=== PATIENT | male | born 1945 | race Caucasian/White ===

== ENCOUNTER 2017-08-08 14:09 | Emergency (ER) | payer MEDICARE, OTHER ==
--- NOTE | 2017-08-08 14:51 | EDM.PDOC ---
ED HPI GENERAL MEDICAL PROBLEM - General Chief Complaint: Respiratory Problem Stated Complaint: BREATHING PROBLEMS Time Seen by Provider: 08/08/17 14:45 Source of Information: Reports: Patient History Limitations: Reports: No Limitations - History of Present Illness INITIAL COMMENTS - FREE TEXT/NARRATIVE: pt has felt sob and has been coughing alot for the past 3 days. he is rauising alot of white mucous. Onset: Gradual, Other (past several days. ) Duration: Day(s):, Getting Worse Location: Reports: Chest, Other (pt has no ankle swelling. ) Associated Symptoms: Reports: Cough, Other (pt has not had a fever. ) - Related Data Allergies Allergy/AdvReac Type Severity Reaction Status Date / Time gluten Allergy Hives Verified 08/08/17 14:26 Past Medical History Other Cardiovascular History: REPAIR OF A POF, AND SURGEON PERFORATED THE BACK OF THE HEART PER PT Respiratory History: Reports: COPD - Past Surgical History Other HEENT Surgeries/Procedures: [place] Other Musculoskeletal Surgeries/Procedures:: HX OF MULTIPLE SPONTANEOUS BONE BREAKS, BONE SCAN NEXT WEEK TO R/O BONE [place] Social & Family History - Tobacco Use Smoking Status *Q: Unknown Ever Smoked ED ROS GENERAL - Review of Systems Review Of Systems: See Below Constitutional: Reports: Weakness, Fatigue HEENT: Reports: No Symptoms Respiratory: Reports: Shortness of Breath, Wheezing Cardiovascular: Reports: No Symptoms Endocrine: Reports: No Symptoms GI/Abdominal: Reports: No Symptoms : Reports: No Symptoms Musculoskeletal: Reports: No Symptoms ED EXAM, GENERAL - Physical Exam Exam: See Below Free Text/Narrative:: pt arrived with a history of a very hard cough and raising alot of white mucous. He is coughing alot and this is wearing him out. Exam Limited By: No Limitations General Appearance: Alert, Anxious, Moderate Distress Ears: Normal TMs Nose: Normal Inspection Throat/Mouth: Normal Inspection Head: Atraumatic Neck: Normal Inspection Respiratory/Chest: Decreased Breath Sounds, Wheezing Cardiovascular: Regular Rate, Rhythm GI/Abdominal: Soft (Male) Exam: Deferred Rectal (Males) Exam: Deferred Back Exam: Normal Inspection Extremities: Normal Inspection, Other ( no swelling. ) Neurological: Alert, Oriented Course - Vital Signs Last Recorded V/S: Last Vital Signs Temp 36.1 C 08/08/17 14:23 Pulse 82 08/08/17 16:48 Resp 21 H 08/08/17 16:48 BP 136/82 08/08/17 16:48 Pulse Ox 93 L 08/08/17 16:48 - Orders/Labs/Meds Orders: Active Orders 24 hr Category Date Time Status RT Aerosol Therapy [RC] ASDIRECTED Care 08/08/17 15:10 Active RT Aerosol Therapy [RC] ASDIRECTED Care 08/08/17 16:29 Active Chest 2V [CR] Stat Exams 08/08/17 14:46 Taken Labs: Laboratory Tests 08/08/17 08/08/17 08/08/17 Range/Units 14:44 14:44 15:13 WBC 8.0 (4.5-11.0) K/uL RBC 4.37 (4.30-5.90) M/uL Hgb 14.0 (12.0-15.0) g/dL Hct 40.4 (40.0-54.0) % MCV 92 (80-98) fL MCH 32 H (27-31) pg MCHC 35 (32-36) % Plt Count 240 (150-400) K/uL Neut % (Auto) 50 (36-66) % Lymph % (Auto) 22 L (24-44) % [place] % (Auto) 19 H (2-6) % Eos % (Auto) 9 H (2-4) % Baso % (Auto) 1 (0-1) % Sodium 139 L (140-148) mmol/L Potassium 4.0 (3.6-5.2) mmol/L Chloride 101 (100-108) mmol/L Carbon Dioxide 29 (21-32) mmol/L Anion Gap 13.0 (5.0-14.0) mmol/L BUN 14 (7-18) mg/dL Creatinine 1.3 (0.8-1.3) mg/dL Est Cr Clr Drug Dosing 60.60 mL/min Estimated GFR (MDRD) 54 L (>60) Glucose 92 (74-106) mg/dL Calcium 8.9 (8.5-10.1) mg/dL Total Bilirubin 0.6 (0.2-1.0) mg/dL AST 53 H (15-37) U/L ALT 51 (12-78) U/L Alkaline Phosphatase 131 H (46-116) U/L C-Reactive Protein 0.86 H (0.0-0.3) mg/dL NT-Pro-B Natriuret Pep (5-125) pg/mL Total Protein 6.6 (6.4-8.2) g/dL Albumin 3.4 (3.4-5.0) g/dL Globulin 3.2 (2.3-3.5) g/dL Albumin/Globulin Ratio 1.1 L (1.2-2.2) 08/08/17 Range/Units 16:01 WBC (4.5-11.0) K/uL RBC (4.30-5.90) M/uL Hgb (12.0-15.0) g/dL Hct (40.0-54.0) % MCV (80-98) fL MCH (27-31) pg MCHC (32-36) % Plt Count (150-400) K/uL Neut % (Auto) (36-66) % Lymph % (Auto) (24-44) % [place] % (Auto) (2-6) % Eos % (Auto) (2-4) % Baso % (Auto) (0-1) % Sodium (140-148) mmol/L Potassium (3.6-5.2) mmol/L Chloride (100-108) mmol/L Carbon Dioxide (21-32) mmol/L Anion Gap (5.0-14.0) mmol/L BUN (7-18) mg/dL Creatinine (0.8-1.3) mg/dL Est Cr Clr Drug Dosing mL/min Estimated GFR (MDRD) (>60) Glucose (74-106) mg/dL Calcium (8.5-10.1) mg/dL Total Bilirubin (0.2-1.0) mg/dL AST (15-37) U/L ALT (12-78) U/L Alkaline Phosphatase (46-116) U/L C-Reactive Protein (0.0-0.3) mg/dL NT-Pro-B Natriuret Pep 192 H (5-125) pg/mL Total Protein (6.4-8.2) g/dL Albumin (3.4-5.0) g/dL Globulin (2.3-3.5) g/dL Albumin/Globulin Ratio (1.2-2.2) Meds: Medications Discontinued Medications Generic Name Dose Route Start Last Admin Trade Name Freq PRN Reason Stop Dose Admin Albuterol 2.5 mg 08/08/17 15:10 08/08/17 15:27 Proventil Neb Soln NEB 08/08/17 15:11 2.5 mg ONETIME ONE Administration Albuterol/Ipratropium 3 ml 08/08/17 16:29 08/08/17 16:40 Duoneb 3.0-0.5 Mg/3 Ml NEB 08/08/17 16:30 3 ml ONETIME ONE Administration Ceftriaxone Sodium 1 gm/ 0 gm 08/08/17 17:04 Lidocaine HCl 2.1 ml IM 08/08/17 17:05 ONETIME ONE Methylprednisolone Sodium Succinate 125 mg 08/08/17 15:42 08/08/17 15:50 Solu-Medrol IM 08/08/17 15:43 125 mg ONETIME ONE Administration - Re-Assessments/Exams Free Text/Narrative Re-Assessment/Exam: 08/08/17 15:50 PT IS PRESENTLY ON DOXYCLINE. AND HAS ONLY 2-3 DAYS LEFT. 08/08/17 15:52 hIS HS A NORMAL WBC WITH ALOT OF EOSINOPHILS. hE HAS BEEN ON STERIODS IN THE PAST. 08/08/17 17:04 The radiologist did read his chest xray. The density that was present in the rt lung may be related to the recent rib fractures or could be a new infiltrate. The radiologist looked at the film and agreed. The area is very close to the ribs. Departure - Departure Time of Disposition: 17:06 Disposition: Home, Self-Care 01 Condition: Fair Clinical Impression: Multiple fractures of ribs, Bronchospasm, COPD (chronic obstructive pulmonary disease) - Discharge Information Instructions: Shortness of Breath, [id number], Bronchospasm, Adult, Easy-to- Read Referrals: PCP,None [Primary Care Provider] - Forms: ED Department Discharge Care Plan Goals: cool mist humidifier, encourage fluids, robitussin ac, 2 tsp q6h, cont doxycyline, use albuterol nebs q 4h. Predisone 30mg for 2 days, 20mg for 2 days , 10mg daily for 5 days. follow up with regular Dr. - My Orders Last 24 Hours: My Active Orders 08/08/17 14:46 Chest 2V [CR] Stat 08/08/17 15:10 RT Aerosol Therapy [RC] ASDIRECTED 08/08/17 16:29 RT Aerosol Therapy [RC] ASDIRECTED - Assessment/Plan Last 24 Hours: My Active Orders 08/08/17 14:46 Chest 2V [CR] Stat 08/08/17 15:10 RT Aerosol Therapy [RC] ASDIRECTED 08/08/17 16:29 RT Aerosol Therapy [RC] ASDIRECTED
[2017-08-08] MEDS ORDERED: Albuterol 0.083% 2.5 MG/3 ML Neb Soln NEB ONE (15:10)
[2017-08-08] MEDS ORDERED: methylPREDNISolone Sodium Succinate 125 MG/2 ML SDV IM ONE (15:42)
[2017-08-08] MEDS ORDERED: Albuterol/Ipratropium 3.0-0.5 MG/3 ML Neb Soln NEB ONE (16:29)
[2017-08-08] MEDS ORDERED: cefTRIAXone 1 GM, Lidocaine 1% 2.1 ML IM ONE ×2 (17:04)
== END 2017-08-08 17:30 | disposition home or self-care (01) ==
LOC: JP.ED 14:09
DX: M84.48XA Pathological fracture, other site, initial encounter for fracture (principal); J98.01 Acute bronchospasm; J44.9 Chronic obstructive pulmonary disease, unspecified; Z91.09 Other allergy status, other than to drugs and biological substances
CPT/HCPCS: 36415; 71020; 80053; 83880; 85025; 86140; 94640; 96372; 96374; 99284; J0696; J2930; J7620

== ENCOUNTER 2018-09-05 10:44 | Emergency (ER) | payer MEDICARE, OTHER ==
--- NOTE | 2018-09-05 11:24 | EDM.PDOC ---
ED HPI GENERAL MEDICAL PROBLEM - General Stated Complaint: HIGH BP, LIGHT HEADED AND WEEK, CHEST PAINS Time Seen by Provider: 09/05/18 11:23 Source of Information: Reports: Patient History Limitations: Reports: No Limitations - History of Present Illness INITIAL COMMENTS - FREE TEXT/NARRATIVE: 73 years old male patient presented with a chief complaint of elevated blood pressure. Patient stated that he had a light headache and felt dizzy last night , feeling lightheaded and checked his blood pressure this morning and was 170/ 80. [facility]. He took his medicines this morning. Denies any chest pain or shortness breath. Denies any cough or fever. Denies any visual changes. Denies any focal weakness or numbness anywhere. Denies any abdominal pain diarrhea or constipation. Denies any urinary symptom. Patient stated that his symptoms completely resolved and he is currently back to normal. Also his blood pressure is down to the normal level with a [id number]. Stating that he is feeling much better and feeling back to normal. - Related Data Allergies Allergy/AdvReac Type Severity Reaction Status Date / Time gluten Allergy Hives Verified 09/05/18 10:58 Home Meds: Home Meds Tiotropium [Spiriva] 18 mcg INH DAILY 08/09/17 [History] Amitriptyline HCl 75 mg PO DAILY 09/05/18 [History] Budesonide/Formoterol Fumarate [Symbicort 160-4.5 Mcg Inhaler] 2 puff IH BID 07/14 [History] Lisinopril 10 mg PO DAILY 09/05/18 [History] Past Medical History HEENT History: Reports: Hard of Hearing, Impaired Vision Other Cardiovascular History: REPAIR OF A POF, AND SURGEON PERFORATED THE BACK OF THE HEART PER PT Respiratory History: Reports: COPD Gastrointestinal History: Reports: Other (See Below) Genitourinary History: Reports: Other (See Below) Musculoskeletal History: Reports: Other (See Below) Neurological History: Reports: TIA Hematologic History: Reports: B12 Deficiency, Blood Transfusion(s) Oncologic (Cancer) History: Reports: Prostate - Infectious Disease History Infectious Disease History: Reports: Chicken Pox, Measles, Mumps - Past Surgical History Head Surgeries/Procedures: Reports: None HEENT Surgical History: Reports: Eye Surgery Other HEENT Surgeries/Procedures: [facility] Cardiovascular Surgical History: Reports: None Respiratory Surgical History: Reports: None GI Surgical History: Reports: Appendectomy Male Surgical History: Reports: Prostatectomy Endocrine Surgical History: Reports: None Neurological Surgical History: Reports: None Other Musculoskeletal Surgeries/Procedures:: HX OF MULTIPLE SPONTANEOUS BONE BREAKS, BONE SCAN NEXT WEEK TO R/O BONE [place] Oncologic Surgical History: Reports: None Dermatological Surgical History: Reports: None Social & Family History - Tobacco Use Smoking Status *Q: Never Smoker - Caffeine Use Caffeine Use: Reports: Coffee - Recreational Drug Use Recreational Drug Use: No ED ROS GENERAL - Review of Systems Review Of Systems: ROS reveals no pertinent complaints other than HPI. ED EXAM, GENERAL - Physical Exam Exam: See Below Exam Limited By: No Limitations General Appearance: Alert, WD/WN, No Apparent Distress Nose: Normal Inspection Throat/Mouth: Normal Inspection Head: Atraumatic, Normocephalic Neck: Normal Inspection, Supple Respiratory/Chest: No Respiratory Distress, Lungs Clear, Normal Breath Sounds, No Accessory Muscle Use. No: Respiratory Distress, Crackles, Rales, Rhonchi, Wheezing Cardiovascular: Normal Peripheral Pulses, Regular Rate, Rhythm, No Edema, No Gallop, No JVD, No Murmur. No: Bradycardia, Tachycardia GI/Abdominal: Normal Bowel Sounds, Soft, Non-Tender, No Organomegaly Neurological: Alert, Oriented, CN II-XII Intact, Normal Cognition, Normal Gait, Normal Reflexes, No Motor/Sensory Deficits. No: Confused Skin Exam: Warm, Dry, Normal Color, No Rash Course - Vital Signs Text/Narrative:: Patient was seen and examined shortly after arrival. Stable. Blood pressure spontaneously improved 130/85. Patient's symptoms completely resolved. I did offer him known chest x-ray, blood work, EKG, etc. Patient states that he is feeling back to normal and symptoms completely resolved and also blood pressure is back to normal and refused any workup or any intervention. He is requesting to be discharged home. Advised to continue taking his home medicine, rest and stay well-hydrated, close monitoring of his blood pressure, Blood pressure diary and review with his primary doctor. Advised to come back if symptom worsen. Patient agrees with the plan. Stable for discharge. Last Recorded V/S: Last Vital Signs Temp 35.2 C 09/05/18 11:01 Pulse 81 09/05/18 11:12 Resp 11 L 09/05/18 11:01 BP 126/90 09/05/18 11:20 Pulse Ox 98 09/05/18 11:01 Departure - Departure Time of Disposition: 11:40 Disposition: Home, Self-Care 01 Condition: Good Clinical Impression: Elevated blood pressure reading, Dizziness - Discharge Information Instructions: Hypertension, [id number], Dizziness, [id number] Referrals: PCP,None [Primary Care Provider] - Forms: ED Department Discharge - Problem List Review Problem List Initiated/Reviewed/Updated: Yes - Assessment/Plan Plan: Advised to continue taking his home medicine, rest and stay well-hydrated, close monitoring of his blood pressure, Blood pressure diary and review with his primary doctor. Advised to come back if symptom worsen. Patient agrees with the plan. Stable for discharge.
== END 2018-09-05 11:49 | disposition home or self-care (01) ==
LOC: JP.ED 10:44
DX: R03.0 Elevated blood-pressure reading, without diagnosis of hypertension (principal); R42 Dizziness and giddiness; Z91.018 Allergy to other foods; Z79.899 Other long term (current) drug therapy
CPT/HCPCS: 99283

== ENCOUNTER 2019-02-11 10:09 | Emergency (ER) | payer MEDICARE, OTHER ==
--- NOTE | 2019-02-11 11:25 | EDM.PDOC ---
ED HPI GENERAL MEDICAL PROBLEM - General Chief Complaint: Eye Problems Stated Complaint: BOTH EYES ARE HAVING VISION ISSUES Time Seen by Provider: 02/11/19 11:05 Source of Information: Reports: Patient History Limitations: Reports: No Limitations - History of Present Illness INITIAL COMMENTS - FREE TEXT/NARRATIVE: 74-year-old male was [facility]. He has had 3 separate episodes of vision loss, symmetric in both eyes that last one to 2 hours over the past 2 weeks. He has no symptoms currently and his last episode was yesterday. He takes no aspirin, Plavix or other anticoagulant medication, according to his history he had a "stroke" with persistent aphasia that lasted a couple of days and had lots of tests over 2 days in the hospital and was "fine". This happened over 10 years ago. He does have a history of right retinal detachment and repair. He has no headaches, peripheral paresthesias or weakness, dizziness, a aphasia or other neurologic symptoms. Onset: Sudden Duration: Hour(s): (Symptoms last 1-2 hours) Improves with: Reports: Other (Improves over time, no other specific treatment) Worsens with: Reports: None Associated Symptoms: Reports: No Other Symptoms Right Head Pain Score (Numeric/FACES): 3 - Related Data Allergies Allergy/AdvReac Type Severity Reaction Status Date / Time fentanyl Allergy Anaphylactic Verified 02/11/19 10:36 Shock gluten Allergy Hives Verified 02/11/19 10:35 morphine Allergy Anaphylactic Verified 02/11/19 10:36 Shock Home Meds: Home Meds Tiotropium [Spiriva] 1 puff INH DAILY 08/09/17 [History] Amitriptyline HCl 75 mg PO DAILY 09/05/18 [History] Budesonide/Formoterol Fumarate [Symbicort 160-4.5 Mcg Inhaler] 2 puff IH BID 07/14 [History] Lisinopril 20 mg PO DAILY 09/05/18 [History] Albuterol Sulfate 2.5 mg IH ASDIRECTED 02/11/19 [History] Albuterol Sulfate [Albuterol Sulfate Hfa] 8.5 gm IH ASDIRECTED 02/11/19 [History ] Amitriptyline [Elavil] 25 mg PO BEDTIME 02/11/19 [History] Budesonide/Formoterol Fumarate [Symbicort 80-4.5 Mcg Inhaler] 1 puff IH ASDIRECTED 02/11/19 [History] Cyanocobalamin (Vitamin B-12) [B-12 Compliance] 1,000 mcg IJ ASDIRECTED [History] Diclofenac Sodium 100 gm TP ASDIRECTED 02/11/19 [History] Gabapentin [Neurontin] 300 mg PO BEDTIME 02/11/19 [History] atorvaSTATin Calcium [Atorvastatin Calcium] 80 mg PO BEDTIME 02/11/19 [History] Past Medical History HEENT History: Reports: Hard of Hearing, Impaired Vision, Other (See Below) Other HEENT History: blood clots in right eye Cardiovascular History: Reports: High Cholesterol, Hypertension Other Cardiovascular History: REPAIR OF A POF, AND SURGEON PERFORATED THE BACK OF THE HEART PER PT Respiratory History: Reports: Asthma, COPD Gastrointestinal History: Reports: Other (See Below) Genitourinary History: Reports: Prostate Disorder Musculoskeletal History: Reports: Arthritis, Back Pain, Chronic, Fracture Neurological History: Reports: TIA Psychiatric History: Reports: Addiction Hematologic History: Reports: B12 Deficiency, Blood Transfusion(s) Oncologic (Cancer) History: Reports: Prostate - Infectious Disease History Infectious Disease History: Reports: Chicken Pox, Measles, MRSA, Pertussis ( Whooping Cough) - Past Surgical History Head Surgeries/Procedures: Reports: None HEENT Surgical History: Reports: Eye Surgery, Retinal Other HEENT Surgeries/Procedures: [place] Cardiovascular Surgical History: Reports: None Respiratory Surgical History: Reports: None GI Surgical History: Reports: Appendectomy, Colonoscopy Male Surgical History: Reports: Prostatectomy Endocrine Surgical History: Reports: None Neurological Surgical History: Reports: None Other Musculoskeletal Surgeries/Procedures:: HX OF MULTIPLE SPONTANEOUS BONE BREAKS, BONE SCAN NEXT WEEK TO R/O BONE [place] Oncologic Surgical History: Reports: None Dermatological Surgical History: Reports: None Social & Family History - Tobacco Use Smoking Status *Q: Never Smoker - Caffeine Use Caffeine Use: Reports: Coffee - Recreational Drug Use Recreational Drug Use: No ED ROS GENERAL - Review of Systems Review Of Systems: See Below Constitutional: Denies: Fever, Chills HEENT: Reports: Vision Change (Symmetric vision loss, centrally) Respiratory: Reports: Other (Has COPD but is stable, no worsening symptoms) Cardiovascular: Denies: Chest Pain, Palpitations GI/Abdominal: Reports: No Symptoms Musculoskeletal: Reports: Other (Chronic knee arthritis) Skin: Reports: No Symptoms Neurological: Denies: Dizziness, Headache Psychiatric: Reports: No Symptoms ED EXAM GENERAL W FULL EYE - Physical Exam Exam: See Below Exam Limited By: No Limitations General Appearance: Alert, No Apparent Distress Eye Exam: Bilateral Eye: EOMI, PERRL Extraocular Movements: Bilateral: Intact Head: Atraumatic Respiratory/Chest: No Respiratory Distress Cardiovascular: Regular Rate, Rhythm Extremities: No: Pedal Edema Neurological: Alert, Oriented Course - Vital Signs Last Recorded V/S: Last Vital Signs Temp 98.2 F 02/11/19 10:32 Pulse 67 02/11/19 10:32 Resp 16 02/11/19 10:32 BP 124/84 02/11/19 10:32 Pulse Ox 97 02/11/19 10:32 - Orders/Labs/Meds Meds: Medications Discontinued Medications Generic Name Dose Route Start Last Admin Trade Name [place] PRN Reason Stop Dose Admin Aspirin 325 mg 02/11/19 12:07 02/11/19 12:14 Ecotrin PO 02/11/19 12:08 325 mg ONETIME ONE Administration - Re-Assessments/Exams Free Text/Narrative Re-Assessment/Exam: 02/11/19 11:[address] without contrast was obtained. 02/11/19 12:08 Patient was in emergency room for over an hour and had no symptoms. CT showed small lacunar and basal ganglion infarcts unknown age. I did talk to the [facility] about his condition and symptoms, gave him a full dose aspirin of 325 mg by mouth, and urged a follow-up visit in the near future for a neurology consultation. He can return anytime if symptoms are recurring or he develops other concerns. Departure - Departure Time of Disposition: 12:17 Disposition: Home, Self-Care 01 Clinical Impression: Vision loss, bilateral, TIA (transient ischemic attack) - Discharge Information Instructions: Transient Ischemic Attack, [id number] Referrals: PCP,None [Primary Care Provider] - Forms: ED Department Discharge Care Plan Goals: Continue your current medications with the addition of a full dose aspirin of 325 mg daily in the morning. [facility] after discussing the results and findings with your [facility]. Return anytime if symptoms are recurring and persistent, or you develop other concerns.
--- NOTE | 2019-02-11 12:01 | CRLCT ---
INDICATION: recurring vision [id number] images INDICATION: Recurring visual loss COMPARISON: none TECHNIQUE: A CT volumetric acquisition was performed of the brain without IV contrast. FINDINGS: There is no evidence of a subdural or epidural hematoma. There is no evidence of subarachnoid hemorrhage or intraparenchymal bleeding. The CT images reveal a normal appearance of the cerebral ventricles and basal cisterns. There are small lacunar infarcts noted within the anterior margin of the right thalamus as well as the genu of both internal capsules. There is no evidence of a mass within the sella turcica. The optic nerves appear symmetric. There is no evidence of inflammation within the retro-orbital fat. The ocular muscles appear symmetric. There is no evidence of localized mass effect. There is normal prince white matter differentiation. Atherosclerotic calcifications are evident within the vertebrobasilar and carotid arteries. The mastoid air cells and middle ear cavities are clear. The calvarium appears intact. There is inflammatory mucoperiosteal thickening within the sphenoid, ethmoid and visualized maxillary sinuses. There is near complete opacification of the frontal air cells. IMPRESSION: Small lacunar infarcts noted within the basal ganglia. No evidence of hemorrhage or mass effect. Paranasal sinusitis. Dictated by Nikhil Good MD @ 02/11/2019 11:58:52 AM Please note that all CT scans at this facility use dose modulation, iterative reconstruction, and/or weight-based dosing when appropriate to reduce radiation dose to as low as reasonably achievable. Dictated by: Nikhil Good MD @ 02/11/2019 11:59:04 (Electronically Signed)
[2019-02-11] MEDS ORDERED: Aspirin 325 MG Tab.EC PO ONE (12:07)
== END 2019-02-11 12:17 | disposition home or self-care (01) ==
LOC: JP.ED 10:09
DX: G45.9 Transient cerebral ischemic attack, unspecified (principal); H54.7 Unspecified visual loss; I10 Essential (primary) hypertension; E78.00 Pure hypercholesterolemia, unspecified; J44.9 Chronic obstructive pulmonary disease, unspecified; Z88.6 Allergy status to analgesic agent; Z79.899 Other long term (current) drug therapy; Z88.8 Allergy status to other drugs, medicaments and biological substances; Z91.018 Allergy to other foods
CPT/HCPCS: 70450; 99283; A9270

== ENCOUNTER 2019-06-02 11:12 | Emergency (ER) | payer OTHER ==
[2019-06-02] MEDS ORDERED: Lidocaine 1% with EPINEPHrine 1:100,000 50 ML MDV SUBCUT STA (11:50)
[2019-06-02] MEDS ORDERED: Bacitracin Oint 1 GM U/D Packet TOP ONE (11:50)
[2019-06-02] MEDS ORDERED: Diphtheria,Pertussis(Acell),Tetanus Vaccine 0.5 ML SDV IM ONE (11:50)
--- NOTE | 2019-06-02 12:20 | EDM.PDOC ---
ED HPI GENERAL MEDICAL PROBLEM - General Chief Complaint: Laceration Stated Complaint: LACERATION ON RT HAND Time Seen by Provider: 06/02/19 11:48 Source of Information: Reports: Patient, Family, RN Notes Reviewed History Limitations: Reports: No Limitations - History of Present Illness INITIAL COMMENTS - FREE TEXT/NARRATIVE: 74-year-old gentleman presents to emergency department today following a fall at home he actually stepped in a hole injured his right leg he developed a laceration on his right hand and also hit his head unknown time loss of consciousness, complains of right leg pain and slight headache - Related Data Allergies Allergy/AdvReac Type Severity Reaction Status Date / Time fentanyl Allergy Anaphylactic Verified 06/02/19 11:32 Shock gluten Allergy Hives Verified 06/02/19 11:32 morphine Allergy Anaphylactic Verified 06/02/19 11:32 Shock Home Meds: Home Meds Tiotropium [Spiriva] 1 puff INH DAILY 08/09/17 [History] Budesonide/Formoterol Fumarate [Symbicort 160-4.5 Mcg Inhaler] 2 puff IH BID 07/14 [History] Lisinopril 20 mg PO DAILY 09/05/18 [History] Albuterol Sulfate 2.5 mg IH ASDIRECTED 02/11/19 [History] Albuterol Sulfate [Albuterol Sulfate Hfa] 8.5 gm IH ASDIRECTED 02/11/19 [History ] Amitriptyline [Elavil] 25 mg PO BEDTIME 02/11/19 [History] Budesonide/Formoterol Fumarate [Symbicort 80-4.5 Mcg Inhaler] 1 puff IH ASDIRECTED 02/11/19 [History] Cyanocobalamin (Vitamin B-12) [B-12 Compliance] 1,000 mcg IJ ASDIRECTED [History] Diclofenac Sodium 100 gm TP ASDIRECTED 02/11/19 [History] Gabapentin [Neurontin] 300 mg PO BEDTIME 02/11/19 [History] atorvaSTATin Calcium [Atorvastatin Calcium] 80 mg PO BEDTIME 02/11/19 [History] Aspirin [Aspirin EC] 325 mg PO DAILY 06/02/19 [History] Past Medical History HEENT History: Reports: Hard of Hearing, Impaired Vision, Other (See Below) Other HEENT History: blood clots in right eye Cardiovascular History: Reports: High Cholesterol, Hypertension Other Cardiovascular History: REPAIR OF A POF, AND SURGEON PERFORATED THE BACK OF THE HEART PER PT Respiratory History: Reports: Asthma, COPD Gastrointestinal History: Reports: Other (See Below) Genitourinary History: Reports: Prostate Disorder Musculoskeletal History: Reports: Arthritis, Back Pain, Chronic, Fracture Neurological History: Reports: TIA Psychiatric History: Reports: Addiction Hematologic History: Reports: B12 Deficiency, Blood Transfusion(s) Oncologic (Cancer) History: Reports: Prostate - Infectious Disease History Infectious Disease History: Reports: Chicken Pox, Measles, MRSA, Pertussis ( Whooping Cough) - Past Surgical History Head Surgeries/Procedures: Reports: None HEENT Surgical History: Reports: Eye Surgery, Retinal Other HEENT Surgeries/Procedures: TRIBE Cardiovascular Surgical History: Reports: None Respiratory Surgical History: Reports: None GI Surgical History: Reports: Appendectomy, Colonoscopy Male Surgical History: Reports: Prostatectomy Endocrine Surgical History: Reports: None Neurological Surgical History: Reports: None Other Musculoskeletal Surgeries/Procedures:: HX OF MULTIPLE SPONTANEOUS BONE BREAKS, BONE SCAN NEXT WEEK TO R/O BONE CA Oncologic Surgical History: Reports: None Dermatological Surgical History: Reports: None Social & Family History - Tobacco Use Smoking Status *Q: Never Smoker - Caffeine Use Caffeine Use: Reports: Coffee - Recreational Drug Use Recreational Drug Use: No ED ROS GENERAL - Review of Systems Review Of Systems: See Below Constitutional: Reports: No Symptoms HEENT: Reports: No Symptoms Respiratory: Reports: No Symptoms Cardiovascular: Reports: No Symptoms GI/Abdominal: Reports: No Symptoms Musculoskeletal: Reports: Leg Pain Skin: Reports: Wound Neurological: Reports: Headache ED EXAM, SKIN/RASH Exam: See Below Exam Limited By: No Limitations General Appearance: Alert, WD/WN, No Apparent Distress Ears: Normal External Exam, Normal Canal, Hearing Grossly Normal, Normal TMs Head: Atraumatic, Normocephalic Neck: Normal Inspection, Supple, Non-Tender, Full Range of Motion Respiratory/Chest: No Respiratory Distress Front/Back Body Diagram: 1 - 4 cm laceration completely through the dermis ED SKIN PROCEDURES - Laceration/Wound Repair Right Hand Appearance: Subcutaneous, Irregular Distal NVT: Neuro & Vascular Intact, No Tendon Injury Anesthetic Type: Local Local Anesthesia - Lidocaine (Xylocaine): 1% with EPI Local Anesthetic Volume: 2cc Skin Prep: Saline Saline Irrigation (cc's): 60 Exploration/Debridement/Repair: Wound Explored, In a Bloodless Field, Explored to Base Closed with: Sutures, Steri-Strips Lac/Wound length In cm: 4 Suture Size: 3-0 # of Sutures: 6 Suture Type: Nylon Sterile Dressing Applied: Nurse Tetanus Status Addressed: Yes (2019) Complications: No Course - Vital Signs Last Recorded V/S: Last Vital Signs Temp 98.6 F 06/02/19 11:35 Pulse 80 06/02/19 11:35 Resp 18 06/02/19 11:35 BP 111/67 06/02/19 11:35 Pulse Ox 93 L 06/02/19 11:35 - Orders/Labs/Meds Orders: Active Orders 24 hr Category Date Time Status Vaccines to be Administered [RC] PER UNIT ROUTINE Care 06/02/19 11:50 Active Meds: Medications Discontinued Medications Generic Name Dose Route Start Last Admin Trade Name [place] PRN Reason Stop Dose Admin Bacitracin 1 dose 06/02/19 11:50 06/02/19 11:57 Bacitracin Oint 1 Gm TOP 06/02/19 11:51 1 dose ONETIME ONE Administration Diphtheria/Tetanus/Acell Pertussis 0.5 ml 06/02/19 11:50 06/02/19 11:57 Adacel IM 06/02/19 11:51 0.5 ml .ONCE ONE Administration Lidocaine/Epinephrine 20 ml 06/02/19 11:50 06/02/19 11:58 Xylocaine 1% With Epinephrine 1:100,000 SUBCUT 06/02/19 11:51 20 ml NOW STA Administration Departure - Departure Time of Disposition: 13:26 Disposition: Home, Self-Care 01 Condition: Fair Clinical Impression: Laceration of right hand Qualifiers: Encounter type: initial encounter Foreign body presence: without foreign body Qualified Code(s): S61.411A - Laceration without foreign body of right hand, initial encounter Head injury due to trauma Qualifiers: Encounter type: initial encounter Qualified Code(s): S09.90XA - Unspecified injury of head, initial encounter Contusion of right leg Qualifiers: Encounter type: initial encounter Qualified Code(s): S80.11XA - Contusion of right lower leg, initial encounter - Discharge Information Instructions: Head Injury, Adult, [id number], Laceration Care, Adult Referrals: PCP,None [Primary Care Provider] - Forms: ED Department Discharge Additional Instructions: Suture removal in 10 days, follow-up primary care return to emergency department , Please followup with your primary care provider in 3-5 days if not better, please call return to the emergency department with worsening of symptoms. - My Orders Last 24 Hours: My Active Orders 06/02/19 11:50 Vaccines to be Administered [RC] PER UNIT ROUTINE - Assessment/Plan Last 24 Hours: My Active Orders 06/02/19 11:50 Vaccines to be Administered [RC] PER UNIT ROUTINE Plan: Assessment Acuity = acute Site and laterality = 4 cm laceration right hand right leg contusion, head injury with loss of consciousness Etiology = secondary to a fall Manifestations = none Location of injury = Home Lab values = CT the head, and tib-fib x-ray no acute process Plan Follow wound care instruction sheet, suture removal in 10 days, follow-up with primary care return to the emergency department worsening of symptoms This note was dictated using [employer] voice recognition software please call with any questions on syntax or grammar.
--- NOTE | 2019-06-02 13:03 | CRLCR ---
INDICATION: Pain after fall COMPARISON: None available. TECHNIQUE: AP and lateral views of the right tibia and fibula were obtained. FINDINGS: There is no sign of fracture, dislocation, or joint effusion. The soft tissues are normal in appearance without sign of radio-opaque foreign body. No significant degenerative disease is seen in the visualized portions of the knee and ankle. IMPRESSION: Normal two-view right tibia and fibula. Dictated by Agusto Hairston MD @ Jun 02 2019 12:58PM Signed by Dr. Agusto Hairston @ Jun 02 2019 1:00PM
--- NOTE | 2019-06-02 13:09 | CRLCT ---
INDICATION: Fall, head injury. Loss of consciousness. TECHNIQUE: Head CT without contrast. COMPARISON: None FINDINGS: CSF spaces: Within normal limits for age. Brain parenchyma and extra-axial spaces: There are nonspecific low attenuation white matter changes consistent with chronic microvascular disease. No sign of mass, hemorrhage, or midline shift. Skull base and calvarium: There is multifocal inflammatory disease in the paranasal sinuses. The visualized orbits are grossly unremarkable. No skull fractures. IMPRESSION: No sign of acute injury.Multifocal paranasal inflammatory sinus disease. No other significant findings. Please note that all CT scans at this facility use dose modulation, iterative reconstruction, and/or weight-based dosing when appropriate to reduce radiation dose to as low as reasonably achievable. Dictated by Jhonny Paz MD @ Jun 02 2019 1:01PM Signed by Dr. Jhonny Paz @ Jun 02 2019 1:07PM
== END 2019-06-02 13:35 | disposition home or self-care (01) ==
LOC: JP.ED 11:12
DX: S06.9X9A Unspecified intracranial injury with loss of consciousness of unspecified duration, initial encounter (principal); S61.411A Laceration without foreign body of right hand, initial encounter; S80.11XA Contusion of right lower leg, initial encounter; I10 Essential (primary) hypertension; E78.5 Hyperlipidemia, unspecified; J44.9 Chronic obstructive pulmonary disease, unspecified; Z88.5 Allergy status to narcotic agent; Z91.018 Allergy to other foods; Z86.73 Personal history of transient ischemic attack (TIA), and cerebral infarction without residual deficits; Z79.82 Long term (current) use of aspirin; Z79.899 Other long term (current) drug therapy; Z23 Encounter for immunization; Z79.51 Long term (current) use of inhaled steroids; W01.0XXA Fall on same level from slipping, tripping and stumbling without subsequent striking against object, initial encounter; Y92.009 Unspecified place in unspecified non-institutional (private) residence as the place of occurrence of the external cause
CPT/HCPCS: 12002; 70450; 73590-RT; 90471; 90715; 99283; 99284-25

== ENCOUNTER 2020-01-16 09:26 | Emergency (ER) | payer OTHER, MEDICARE ==
--- NOTE | 2020-01-16 10:14 | EDM.PDOC ---
ED HPI GENERAL MEDICAL PROBLEM - General Chief Complaint: Respiratory Problem Stated Complaint: SOB, COUGH,MUSCLE ACHES, FEVER, NAUSEA Time Seen by Provider: 01/16/20 09:45 Source of Information: Reports: Patient History Limitations: Reports: No Limitations - History of Present Illness INITIAL COMMENTS - FREE TEXT/NARRATIVE: 74-year-old male with a history of COPD, tends to get recurring pneumonia develop shaking chills this morning, cough but no production. He has been isolating at home with 1 visit to the grocery store over the past week, otherwise he has had no exposure to other people. He called the [place] and they wanted him to come in and get checked not only for pneumonia but possible COVID. His temperature now is 99.6 and shaking chills are gone but he still feels very weak. Denies nausea or vomiting. Does have a decreased appetite this morning. Onset: Gradual (Symptoms have developed over the past 12 to 24 hours) Worsens with: Reports: Other (Shortness of breath is worse with activity) Associated Symptoms: Reports: Fever/Chills, Other (Also has his mild sore throat nasal congestion) - Related Data Allergies Allergy/AdvReac Type Severity Reaction Status Date / Time fentanyl Allergy Anaphylactic Verified 01/16/20 09:35 Shock gluten Allergy Hives Verified 01/16/20 09:35 morphine Allergy Anaphylactic Verified 01/16/20 09:35 Shock Home Meds: Home Meds Tiotropium [Spiriva] 1 puff INH DAILY 08/09/17 [History] Budesonide/Formoterol Fumarate [Symbicort 160-4.5 Mcg Inhaler] 2 puff IH BID 07/14 [History] Lisinopril 20 mg PO DAILY 09/05/18 [History] Albuterol Sulfate 2.5 mg IH DAILY 02/11/19 [History] Albuterol Sulfate [Albuterol Sulfate Hfa] 8.5 gm IH ASDIRECTED 02/11/19 [History ] Amitriptyline [Elavil] 25 mg PO BEDTIME 02/11/19 [History] Budesonide/Formoterol Fumarate [Symbicort 80-4.5 Mcg Inhaler] 1 puff IH ASDIRECTED 02/11/19 [History] Cyanocobalamin (Vitamin B-12) [B-12 Compliance] 1,000 mcg IJ ASDIRECTED [History] Diclofenac Sodium 100 gm TP ASDIRECTED 02/11/19 [History] Gabapentin [Neurontin] 300 mg PO BEDTIME 02/11/19 [History] atorvaSTATin Calcium [Atorvastatin Calcium] 80 mg PO BEDTIME 02/11/19 [History] Aspirin [Aspirin EC] 325 mg PO DAILY 06/02/19 [History] Past Medical History HEENT History: Reports: Hard of Hearing, Impaired Vision, Other (See Below) Other HEENT History: blood clots in right eye Cardiovascular History: Reports: High Cholesterol, Hypertension Other Cardiovascular History: REPAIR OF A POF, AND SURGEON PERFORATED THE BACK OF THE HEART PER PT Respiratory History: Reports: Asthma, COPD Gastrointestinal History: Reports: Other (See Below) Genitourinary History: Reports: Prostate Disorder Musculoskeletal History: Reports: Arthritis, Back Pain, Chronic, Fracture Neurological History: Reports: TIA Psychiatric History: Reports: Addiction Hematologic History: Reports: B12 Deficiency, Blood Transfusion(s) Oncologic (Cancer) History: Reports: Prostate - Infectious Disease History Infectious Disease History: Reports: Chicken Pox, Measles, MRSA, Pertussis ( Whooping Cough) - Past Surgical History Head Surgeries/Procedures: Reports: None HEENT Surgical History: Reports: Eye Surgery, Retinal Other HEENT Surgeries/Procedures: HYDABURG Cardiovascular Surgical History: Reports: None Respiratory Surgical History: Reports: None GI Surgical History: Reports: Appendectomy, Colonoscopy Male Surgical History: Reports: Prostatectomy Endocrine Surgical History: Reports: None Neurological Surgical History: Reports: None Other Musculoskeletal Surgeries/Procedures:: HX OF MULTIPLE SPONTANEOUS BONE BREAKS, BONE SCAN NEXT WEEK TO R/O BONE CA Oncologic Surgical History: Reports: None Dermatological Surgical History: Reports: None Social & Family History - Tobacco Use Smoking Status *Q: Never Smoker - Caffeine Use Caffeine Use: Reports: Coffee ED ROS GENERAL - Review of Systems Review Of Systems: See Below Constitutional: Reports: Fever, Chills, Malaise HEENT: Reports: Rhinitis, Throat Pain Respiratory: Reports: Shortness of Breath, Cough. Denies: Sputum Cardiovascular: Reports: Chest Pain (Some intermittent left upper chest discomfort, worse with breathing) GI/Abdominal: Reports: Decreased Appetite, Nausea. Denies: Vomiting : Reports: No Symptoms Skin: Reports: No Symptoms Neurological: Reports: Dizziness, Weakness Psychiatric: Reports: No Symptoms ED EXAM, GENERAL - Physical Exam Exam: See Below Exam Limited By: No Limitations General Appearance: Alert, No Apparent Distress, Other (Patient appears tired but otherwise stable) Eye Exam: Bilateral Eye: Normal Inspection Head: Atraumatic Neck: Non-Tender Respiratory/Chest: Lungs Clear Cardiovascular: Regular Rate, Rhythm GI/Abdominal: Soft, Non-Tender Neurological: Alert, Oriented Psychiatric: Normal Affect, Normal Mood, Flat Affect Skin Exam: Warm, Dry Course - Vital Signs Last Recorded V/S: Last Vital Signs Temp 99.7 F 01/16/20 09:34 Pulse 83 01/16/20 09:34 Resp 20 01/16/20 09:34 BP 90/61 01/16/20 09:34 Pulse Ox 95 01/16/20 09:34 - Orders/Labs/Meds Orders: Active Orders 24 hr Category Date Time Status CORONAVIRUS COVID-19, ALFONSO Stat Lab 01/16/20 10:25 Received Labs: Laboratory Tests 01/16/20 01/16/20 Range/Units 10:25 10:25 WBC 14.7 H (4.5-11.0) K/uL RBC 4.55 (4.30-5.90) M/uL Hgb 14.1 (12.0-15.0) g/dL Hct 42.5 (40.0-54.0) % MCV 93 (80-98) fL MCH 31 (27-31) pg MCHC 33 (32-36) % Plt Count 217 (150-400) K/uL Neut % (Auto) 82 H (36-66) % Lymph % (Auto) 6 L (24-44) % [place] % (Auto) 9 H (2-6) % Eos % (Auto) 2 (2-4) % Baso % (Auto) 0 (0-1) % Sodium 138 L (140-148) mmol/L Potassium 3.6 (3.6-5.2) mmol/L Chloride 105 (100-108) mmol/L Carbon Dioxide 22 (21-32) mmol/L Anion Gap 14.6 H (5.0-14.0) mmol/L BUN 15 (7-18) mg/dL Creatinine 1.5 H (0.8-1.3) mg/dL Est Cr Clr Drug Dosing 49.57 mL/min Estimated GFR (MDRD) 46 L (>60) Glucose 129 H (74-106) mg/dL Calcium 8.3 L (8.5-10.1) mg/dL - Re-Assessments/Exams Free Text/Narrative Re-Assessment/Exam: 01/16/20 10:14 CBC, BMP and two-view chest x-ray were ordered as well as a COVID-19 test. 01/16/20 10:45 Chest x-ray shows no infiltrate effusion or significant changes from previous x- rays. White count is 14,700. Patient did have a culture test which is pending , will be placed on a course of Zithromax and will socially isolated at home until test returns. He can return if worsening such as increased shortness of breath. 01/16/20 10:55 BMP is relatively stable from previous levels with mild renal insufficiency. Recheck blood pressure was 95/63. Patient was encouraged to stay hydrated and he will be informed of his test results when available. Departure - Departure Time of Disposition: 11:12 Disposition: Home, Self-Care 01 Clinical Impression: Bronchitis - Discharge Information Instructions: Acute Bronchitis, Adult, [id number] Referrals: PCP,None [Primary Care Provider] - Forms: ED Department Discharge Care Plan Goals: Continue your current medications, stay hydrated and socially isolated until your COVID test returns in the next 48 hours. Return anytime if worsening such as difficulty breathing. Sepsis Event Note - Evaluation Sepsis Screening Result: No Definite Risk - Focused Exam Vital Signs: Vital Signs Temp Pulse Resp BP Pulse Ox 01/16/20 09:34 99.7 F 83 20 90/61 95 Date Exam was Performed: 01/16/20 Time Exam was Performed: 11:15 - My Orders Last 24 Hours: My Active Orders 01/16/20 10:25 CORONAVIRUS COVID-19, ALFONSO Stat - Assessment/Plan Last 24 Hours: My Active Orders 01/16/20 10:25 CORONAVIRUS COVID-19, ALFONSO Stat
--- NOTE | 2020-01-16 11:12 | CRLCR ---
INDICATION: Cough. COMPARISON: Chest x-ray dated 08 August 2017. FINDINGS: A single portable chest x-ray shows median sternotomy changes. Normal cardiac silhouette. The lungs show no focal pulmonary opacities. Sharp pleural margins. No pneumothorax. IMPRESSION: No evidence of acute pulmonary abnormalities. Dictated by Cory Guidry MD @ 01/16/2020 11:11:50 AM Dictated by: Cory Guidry MD @ 01/16/2020 11:11:58 (Electronically Signed)
== END 2020-01-16 11:12 | disposition home or self-care (01) ==
LOC: JP.ED 09:26
DX: J40 Bronchitis, not specified as acute or chronic (principal); E78.00 Pure hypercholesterolemia, unspecified; I10 Essential (primary) hypertension; J44.9 Chronic obstructive pulmonary disease, unspecified; M19.90 Unspecified osteoarthritis, unspecified site; Z88.5 Allergy status to narcotic agent; Z91.048 Other nonmedicinal substance allergy status; Z79.82 Long term (current) use of aspirin; Z86.73 Personal history of transient ischemic attack (TIA), and cerebral infarction without residual deficits; Z79.899 Other long term (current) drug therapy
CPT/HCPCS: 71045; 80048; 85025; 99283; 99283-25; U0002

== ENCOUNTER 2020-07-12 13:48 | Emergency (ER) | payer MEDICARE, OTHER ==
--- NOTE | 2020-07-12 14:55 | EDM.PDOC ---
ED HPI GENERAL MEDICAL PROBLEM - General Chief Complaint: Respiratory Problem Stated Complaint: DIFFICULTY BREATHING, POSSIBLE COVID Time Seen by Provider: 07/12/20 14:35 Source of Information: Reports: Patient History Limitations: Reports: No Limitations - History of Present Illness INITIAL COMMENTS - FREE TEXT/NARRATIVE: 75-year-old male with known COPD has had a cough and sore throat for the past couple of days with known coronavirus exposure. He also had to use his nebulizer overnight because of cough and bronchospasm. Today he feels back to baseline, but [facility] and [facility] to come in to get tested. He had a low-grade fever yesterday, it is resolved today. Onset: Unknown/Unsure (Last few days) Generalized Pain Score (Numeric/FACES): 2 - Related Data Allergies Allergy/AdvReac Type Severity Reaction Status Date / Time fentanyl Allergy Anaphylactic Verified 07/12/20 14:11 Shock gluten Allergy Hives Verified 07/12/20 14:11 morphine Allergy Anaphylactic Verified 07/12/20 14:11 Shock Home Meds: Home Meds Tiotropium [Spiriva] 1 puff INH DAILY 08/09/17 [History] Budesonide/Formoterol Fumarate [Symbicort 160-4.5 Mcg Inhaler] 2 puff IH BID 09/05/18 [History] Lisinopril 20 mg PO DAILY 09/05/18 [History] Albuterol Sulfate 2.5 mg IH DAILY 02/11/19 [History] Albuterol Sulfate [Albuterol Sulfate Hfa] 8.5 gm IH ASDIRECTED 02/11/19 [History] Amitriptyline [Elavil] 25 mg PO BEDTIME 02/11/19 [History] Cyanocobalamin (Vitamin B-12) [B-12 Compliance] 1,000 mcg IJ ASDIRECTED 02/11/19 [History] Diclofenac Sodium 100 gm TP ASDIRECTED 02/11/19 [History] Gabapentin [Neurontin] 300 mg PO BEDTIME 02/11/19 [History] atorvaSTATin Calcium [Atorvastatin Calcium] 80 mg PO BEDTIME 02/11/19 [History] Past Medical History HEENT History: Reports: Hard of Hearing, Impaired Vision, Retinal Detachment, Other (See Below) Other HEENT History: blood clots in both eyes Cardiovascular History: Reports: High Cholesterol, Hypertension Other Cardiovascular History: REPAIR OF A POF, AND SURGEON PERFORATED THE BACK OF THE HEART PER PT Respiratory History: Reports: Asthma, COPD Gastrointestinal History: Reports: Other (See Below) Genitourinary History: Reports: Prostate Disorder Musculoskeletal History: Reports: Arthritis, Back Pain, Chronic, Fracture Neurological History: Reports: TIA Psychiatric History: Reports: Addiction Hematologic History: Reports: B12 Deficiency, Blood Transfusion(s) Oncologic (Cancer) History: Reports: Prostate - Infectious Disease History Infectious Disease History: Reports: Chicken Pox, Measles, MRSA, Pertussis (Whooping Cough) - Past Surgical History Head Surgeries/Procedures: Reports: None HEENT Surgical History: Reports: Eye Surgery, Retinal Other HEENT Surgeries/Procedures: [place] GI Surgical History: Reports: Appendectomy, Colonoscopy Male Surgical History: Reports: Prostatectomy Other Musculoskeletal Surgeries/Procedures:: HX OF MULTIPLE SPONTANEOUS BONE BREAKS Social & Family History - Tobacco Use Tobacco Use Status *Q: Never Tobacco User - Caffeine Use Caffeine Use: Reports: Coffee - Alcohol Use Days Per Week of Alcohol Use: 7 Number of Drinks Per Day: 1 Total Drinks Per Week: 7 - Recreational Drug Use Recreational Drug Use: No ED ROS GENERAL - Review of Systems Review Of Systems: See Below Constitutional: Reports: Fever (Low-grade fever yesterday) HEENT: Reports: Throat Pain (Scratchy hoarse throat), Other (Claims he has lost taste and smell for the last 3 weeks) Respiratory: Reports: Shortness of Breath, Cough. Denies: Sputum Cardiovascular: Denies: Chest Pain GI/Abdominal: Denies: Abdominal Pain, Nausea, Vomiting Skin: Reports: No Symptoms Neurological: Denies: Headache ED EXAM, GENERAL - Physical Exam Exam: See Below Exam Limited By: No Limitations General Appearance: Alert, No Apparent Distress Eye Exam: Bilateral Eye: Normal Inspection Throat/Mouth: Normal Inspection Head: Atraumatic Respiratory/Chest: No Respiratory Distress, Other (Diffuse decreased breath sounds but no expiratory wheezes or basilar rales, no rhonchi) Extremities: No: Pedal Edema Neurological: Alert, Oriented Psychiatric: Normal Affect, Normal Mood Skin Exam: Warm, Dry Course - Vital Signs Last Recorded V/S: Last Vital Signs Temp 97.4 F 07/12/20 14:20 Pulse 90 07/12/20 14:20 Resp 18 07/12/20 14:20 BP 137/85 07/12/20 14:20 Pulse Ox 96 07/12/20 14:20 - Orders/Labs/Meds Orders: Active Orders 24 hr Category Date Time Status CORONAVIRUS COVID-19, ALFONSO Stat Lab 07/12/20 15:27 Received - Re-Assessments/Exams Free Text/Narrative Re-Assessment/Exam: 07/12/20 14:59 Patient has doxycycline at home and will take 7 days worth to cover bronchitis. A coronavirus test was obtained and we will inform the patient of the results. Continue using his nebulizer as needed, and return anytime if worsening despite treatment. Departure - Departure Time of Disposition: 15:31 Disposition: Home, Self-Care 01 Clinical Impression: COPD exacerbation, Bronchitis - Discharge Information Instructions: Acute Bronchitis, Adult, [id number] Referrals: PCP,None [Primary Care Provider] - Forms: ED Department Discharge Care Plan Goals: Try a course of doxycycline for 7 days, use nebulizer as needed and continue activity as tolerated. Your test results should be available in the next couple of days, return anytime if worsening or concerns. I would recommend quarantine until test result is available. Sepsis Event Note (ED) - Evaluation Sepsis Screening Result: No Definite Risk - Focused Exam Vital Signs: Vital Signs Temp Pulse Resp BP Pulse Ox 07/12/20 14:20 97.4 F 90 18 137/85 96 - My Orders Last 24 Hours: My Active Orders 07/12/20 15:27 CORONAVIRUS COVID-19, ALFONSO Stat - Assessment/Plan Last 24 Hours: My Active Orders 07/12/20 15:27 CORONAVIRUS COVID-19, ALFONSO Stat
== END 2020-07-12 15:31 | disposition home or self-care (01) ==
LOC: JP.ED 13:48
DX: J44.1 Chronic obstructive pulmonary disease with (acute) exacerbation (principal); J40 Bronchitis, not specified as acute or chronic; I10 Essential (primary) hypertension; E78.00 Pure hypercholesterolemia, unspecified; Z20.828 Contact with and (suspected) exposure to other viral communicable diseases; Z88.8 Allergy status to other drugs, medicaments and biological substances; Z88.5 Allergy status to narcotic agent; Z79.899 Other long term (current) drug therapy; Z91.018 Allergy to other foods
CPT/HCPCS: 99282; 99283; U0002

== ENCOUNTER 2020-12-19 19:15 | Emergency (ER) | payer MEDICARE, OTHER ==
--- NOTE | 2020-12-19 20:47 | EDM.PDOC ---
ED HPI GENERAL MEDICAL PROBLEM - General Chief Complaint: Respiratory Problem Stated Complaint: COPD, SOB Time Seen by Provider: 12/19/20 20:42 Source of Information: Reports: Patient History Limitations: Reports: No Limitations - History of Present Illness INITIAL COMMENTS - FREE TEXT/NARRATIVE: pt has recently traveled to [place] and he developed sob there. He did not take his nebulizer with him. He also did not take his doxycyline with him. He has had covid vac about 2 monthes ago. Earlier his Dr did think he may have had covid. Onset: Gradual, Other (pt has been sob for about 1 week. He started to run a temp on saturday. ) Duration: Day(s): Location: Reports: Chest, Generalized Associated Symptoms: Reports: Cough, Fever/Chills, Loss of Appetite, Other ( colored sputum. ) Right Lower Chest Pain Score (Numeric/FACES): 3 - Related Data Allergies Allergy/AdvReac Type Severity Reaction Status Date / Time fentanyl Allergy Anaphylactic Verified 12/19/20 19:52 Shock gluten Allergy Hives Verified 12/19/20 19:52 morphine Allergy Anaphylactic Verified 12/19/20 19:52 Shock Home Meds: Home Meds Tiotropium [Spiriva] 1 puff INH DAILY 08/09/17 [History] Budesonide/Formoterol Fumarate [Symbicort 160-4.5 Mcg Inhaler] 2 puff IH BID 09/05/18 [History] Lisinopril 20 mg PO DAILY 09/05/18 [History] Albuterol Sulfate 2.5 mg IH DAILY PRN 02/11/19 [History] Albuterol Sulfate [Albuterol Sulfate Hfa] 8.5 gm IH ASDIRECTED PRN 02/11/19 [History] Amitriptyline [Elavil] 25 mg PO BEDTIME 02/11/19 [History] Cyanocobalamin (Vitamin B-12) [B-12 Compliance] 1,000 mcg IJ ASDIRECTED 02/11/19 [History] Diclofenac Sodium 1 dose TP ASDIRECTED PRN 02/11/19 [History] Gabapentin [Neurontin] 300 mg PO BID 02/11/19 [History] atorvaSTATin Calcium [Atorvastatin Calcium] 40 mg PO BEDTIME 02/11/19 [History] Alprostadil [Edex] 40 mcg IC ASDIRECTED PRN 12/19/20 [History] Aspirin [Lo-Dose Aspirin EC] 81 mg PO DAILY 12/19/20 [History] Brimonidine [Alphagan 0.2% Ophth Soln] 1 drop TOP BID 12/19/20 [History] Cetirizine HCl [Allergy Relief] 10 mg PO DAILY 12/19/20 [History] Doxycycline [Doxycycline Hyclate] 100 mg PO Q12HR PRN 12/19/20 [History] Fluticasone Propionate 1 spray TOP BID 12/19/20 [History] Fluticasone Propionate [Flonase] 1 spray TOP BID 12/19/20 [History] Gabapentin [Neurontin] 900 mg PO BEDTIME 12/19/20 [History] Iron Polysaccharide Complex [Iferex 150] 150 mg PO DAILY 12/19/20 [History] Propranolol HCl [Propranolol] 60 mg PO DAILY 12/19/20 [History] SUMAtriptan [Imitrex] 50 mg PO DAILY PRN 12/19/20 [History] allopurinoL [Zyloprim] 100 mg PO DAILY 12/19/20 [History] Past Medical History HEENT History: Reports: Hard of Hearing, Impaired Vision, Retinal Detachment, Other (See Below) Other HEENT History: blood clots in both eyes Cardiovascular History: Reports: High Cholesterol, Hypertension Other Cardiovascular History: REPAIR OF A POF, AND SURGEON PERFORATED THE BACK OF THE HEART PER PT Respiratory History: Reports: Asthma, COPD Gastrointestinal History: Reports: Other (See Below) Genitourinary History: Reports: Prostate Disorder Musculoskeletal History: Reports: Arthritis, Back Pain, Chronic, Fracture Neurological History: Reports: TIA Psychiatric History: Reports: Addiction Other Psychiatric History: past alcohol Hematologic History: Reports: B12 Deficiency, Blood Transfusion(s) Oncologic (Cancer) History: Reports: Prostate - Infectious Disease History Infectious Disease History: Reports: Chicken Pox, Measles, MRSA, Pertussis (Whooping Cough) - Past Surgical History Head Surgeries/Procedures: Reports: None HEENT Surgical History: Reports: Eye Surgery, Retinal Other HEENT Surgeries/Procedures: [place] Cardiovascular Surgical History: Reports: None Respiratory Surgical History: Reports: None GI Surgical History: Reports: Appendectomy, Colonoscopy Male Surgical History: Reports: Prostatectomy Endocrine Surgical History: Reports: None Neurological Surgical History: Reports: None Other Musculoskeletal Surgeries/Procedures:: HX OF MULTIPLE SPONTANEOUS BONE BREAKS Oncologic Surgical History: Reports: None Dermatological Surgical History: Reports: None Social & Family History - Tobacco Use Tobacco Use Status *Q: Never Tobacco User Second Hand Smoke Exposure: No - Caffeine Use Caffeine Use: Reports: Coffee - Alcohol Use Days Per Week of Alcohol Use: 3 Number of Drinks Per Day: 3 Total Drinks Per Week: 9 - Recreational Drug Use Recreational Drug Use: No ED ROS GENERAL - Review of Systems Review Of Systems: See Below Constitutional: Reports: Fever, Chills, Malaise HEENT: Reports: No Symptoms, Other (pt did loose his taste and smell about 3 monthes ago. ) Respiratory: Reports: Shortness of Breath, Cough, Sputum Cardiovascular: Reports: No Symptoms Endocrine: Reports: No Symptoms GI/Abdominal: Reports: No Symptoms : Reports: No Symptoms Musculoskeletal: Reports: No Symptoms Skin: Reports: No Symptoms Neurological: Reports: No Symptoms Psychiatric: Reports: Anxiety ED EXAM, GENERAL - Physical Exam Exam: See Below Free Text/Narrative:: pt arrived sob and having a fever. He has had the covid vacine. about 2 monthes ago. Exam Limited By: No Limitations General Appearance: Alert, Anxious, Mild Distress, Other (o2 sats are in the low 90s. ) Ears: Normal TMs Nose: Normal Inspection Throat/Mouth: Normal Inspection Head: Atraumatic Neck: Normal Inspection Respiratory/Chest: Wheezing Cardiovascular: Regular Rate, Rhythm GI/Abdominal: Soft, Non-Tender (Male) Exam: Deferred Rectal (Males) Exam: Deferred Back Exam: Normal Inspection Extremities: Other (no edema. ) Neurological: Alert, Oriented, Normal Cognition Psychiatric: Normal Affect Course - Vital Signs Last Recorded V/S: Last Vital Signs Temp 37.0 C 12/19/20 20:18 Pulse 71 12/19/20 20:54 Resp 18 12/19/20 20:18 BP 126/83 12/19/20 20:54 Pulse Ox 93 L 12/19/20 20:18 - Orders/Labs/Meds Orders: Active Orders 24 hr Category Date Time Status Sodium Chloride 0.9% [Saline Flush] Med 12/19/20 21:36 Active 10 ml FLUSH ASDIRECTED PRN cefTRIAXone [Rocephin] 1 gm Med 12/19/20 21:36 Active Sodium Chloride 0.9% [Normal Saline] 50 ml IV ONETIME Isolation [COMM] Stat Oth 12/19/20 20:12 Ordered Saline Lock Insert [OM.PC] Routine Oth 12/19/20 21:36 Ordered Medication Orders Ceftriaxone Sodium 1 gm/ (Sodium Chloride) 50 mls @ 100 mls/hr IV ONETIME ONE Stop: 12/19/20 22:05 Sodium Chloride (Sodium Chloride 0.9% 10 Ml Syringe) 10 ml FLUSH ASDIRECTED PRN PRN Reason: Keep Vein Open Labs: Laboratory Tests 12/19/20 12/19/20 12/19/20 Range/Units 20:20 20:25 20:25 WBC 10.5 (4.5-11.0) K/uL RBC 4.40 (4.30-5.90) M/uL Hgb 13.9 (12.0-15.0) g/dL Hct 41.4 (40.0-54.0) % MCV 94 (80-98) fL MCH 32 H (27-31) pg MCHC 34 (32-36) % Plt Count 242 (150-400) K/uL Neut % (Auto) 67 H (36-66) % Lymph % (Auto) 14 L (24-44) % [place] % (Auto) 14 H (2-6) % Eos % (Auto) 5 H (2-4) % Baso % (Auto) 0 (0-1) % Sodium (140-148) mmol/L Potassium (3.6-5.2) mmol/L Chloride (100-108) mmol/L Carbon Dioxide (21-32) mmol/L Anion Gap (5.0-14.0) mmol/L BUN (7-18) mg/dL Creatinine (0.8-1.3) mg/dL Est Cr Clr Drug Dosing mL/min Estimated GFR (MDRD) (>60) Glucose (74-106) mg/dL Lactic Acid 1.6 (0.4-2.0) mmol/L Calcium (8.5-10.1) mg/dL Total Bilirubin (0.2-1.0) mg/dL AST (15-37) U/L ALT (12-78) U/L Alkaline Phosphatase (46-116) U/L C-Reactive Protein 8.75 H (0.0-0.3) mg/dL Total Protein (6.4-8.2) g/dL Albumin (3.4-5.0) g/dL Globulin (2.3-3.5) g/dL Albumin/Globulin Ratio (1.2-2.2) Urine Color (YELLOW) Urine Appearance (CLEAR) Urine pH (5.0-8.0) Ur Specific [place] (1.008-1.030) Urine Protein (NEGATIVE) mg/dL Urine Glucose (UA) (NEGATIVE) mg/dL Urine Ketones (NEGATIVE) mg/dL Urine Occult Blood (NEGATIVE) Urine Nitrite (NEGATIVE) Urine Bilirubin (NEGATIVE) Urine Urobilinogen (0.2-1.0) EU/dL Ur Leukocyte Esterase (NEGATIVE) Urine RBC (0-5) Urine WBC (0-5) Ur Epithelial Cells Amorphous Sediment Urine Bacteria Urine Mucus Influenza Type A RNA (NEGATIVE) RSV RNA (INAAT) (NEGATIVE) Influenza Type B RNA (NEGATIVE) SARS-CoV-2 RNA (ALFONSO) (NEGATIVE) 12/19/20 12/19/20 12/19/20 Range/Units 20:25 20:45 20:55 WBC (4.5-11.0) K/uL RBC (4.30-5.90) M/uL Hgb (12.0-15.0) g/dL Hct (40.0-54.0) % MCV (80-98) fL MCH (27-31) pg MCHC (32-36) % Plt Count (150-400) K/uL Neut % (Auto) (36-66) % Lymph % (Auto) (24-44) % [place] % (Auto) (2-6) % Eos % (Auto) (2-4) % Baso % (Auto) (0-1) % Sodium 142 (140-148) mmol/L Potassium 4.2 (3.6-5.2) mmol/L Chloride 106 (100-108) mmol/L Carbon Dioxide 23 (21-32) mmol/L Anion Gap 13.2 (5.0-14.0) mmol/L BUN 18 (7-18) mg/dL Creatinine 1.2 (0.8-1.3) mg/dL Est Cr Clr Drug Dosing 62.79 mL/min Estimated GFR (MDRD) 59 L (>60) Glucose 108 H (74-106) mg/dL Lactic Acid (0.4-2.0) mmol/L Calcium 9.0 (8.5-10.1) mg/dL Total Bilirubin 0.8 (0.2-1.0) mg/dL AST 23 (15-37) U/L ALT 24 (12-78) U/L Alkaline Phosphatase 73 (46-116) U/L C-Reactive Protein (0.0-0.3) mg/dL Total Protein 6.6 (6.4-8.2) g/dL Albumin 3.0 L (3.4-5.0) g/dL Globulin 3.6 H (2.3-3.5) g/dL Albumin/Globulin Ratio 0.8 L (1.2-2.2) Urine Color Yellow (YELLOW) Urine Appearance Clear (CLEAR) Urine pH 6.0 (5.0-8.0) Ur Specific [place] 1.020 (1.008-1.030) Urine Protein Negative (NEGATIVE) mg/dL Urine Glucose (UA) Negative (NEGATIVE) mg/dL Urine Ketones Negative (NEGATIVE) mg/dL Urine Occult Blood Small H (NEGATIVE) Urine Nitrite Negative (NEGATIVE) Urine Bilirubin Negative (NEGATIVE) Urine Urobilinogen 1.0 (0.2-1.0) EU/dL Ur Leukocyte Esterase Negative (NEGATIVE) Urine RBC 5-10 H (0-5) Urine WBC 0-5 (0-5) Ur Epithelial Cells Rare Amorphous Sediment Not seen Urine Bacteria Rare Urine Mucus Not seen Influenza Type A RNA Negative (NEGATIVE) RSV RNA (INAAT) Negative (NEGATIVE) Influenza Type B RNA Negative (NEGATIVE) SARS-CoV-2 RNA (ALFONSO) Negative (NEGATIVE) Meds: Medications Generic Name Dose Route Start Last Admin Trade Name Freq PRN Reason Stop Dose Admin Ceftriaxone Sodium 1 gm/ 50 mls @ 100 mls/hr 12/19/20 21:36 Sodium Chloride IV 12/19/20 22:05 ONETIME ONE Sodium Chloride 10 ml 12/19/20 21:36 Sodium Chloride 0.9% 10 Ml Syringe FLUSH ASDIRECTED PRN Keep Vein Open - Re-Assessments/Exams Free Text/Narrative Re-Assessment/Exam: 12/19/20 21:41 pt was covid neg. His wbc is not high, His chest xray shows some possible infiltrate early in the rt lower lung field. He is maintainining his o2 sats. He has good labs otherwise. he was given rocephen 1 gm iv now and he will return tomorrow for further rocephen 1 gm. He will continue his doxycline. Departure - Departure Time of Disposition: 21:43 Disposition: Home, Self-Care 01 Condition: Fair Clinical Impression: Pneumonia, COPD exacerbation - Discharge Information Referrals: PCP,None [Primary Care Provider] - Forms: ED Department Discharge Care Plan Goals: push fluids, tylenol for chest discomfort, use the nebulizers tid for the next 5 days, rtc tomorrow for another gram of rocephen, continue with the doxycline. rtc if increased symptoms. Sepsis Event Note (ED) - Evaluation Sepsis Screening Result: No Definite Risk - Focused Exam Vital Signs: Vital Signs Temp Pulse Resp BP Pulse Ox 12/19/20 20:54 71 126/83 12/19/20 20:18 37.0 C 71 18 140/89 93 L 12/19/20 19:37 37.0 C 71 18 140/89 93 L - My Orders Last 24 Hours: My Active Orders 12/19/20 20:12 Isolation [COMM] Stat 12/19/20 21:36 Sodium Chloride 0.9% [Saline Flush] 10 ml FLUSH ASDIRECTED PRN cefTRIAXone [Rocephin] 1 gm Sodium Chloride 0.9% [Normal Saline] 50 ml IV ONETIME Saline Lock Insert [OM.PC] Routine - Assessment/Plan Last 24 Hours: My Active Orders 12/19/20 20:12 Isolation [COMM] Stat 12/19/20 21:36 Sodium Chloride 0.9% [Saline Flush] 10 ml FLUSH ASDIRECTED PRN cefTRIAXone [Rocephin] 1 gm Sodium Chloride 0.9% [Normal Saline] 50 ml IV ONET DUSTY Saline Lock Insert [OM.PC] Routine
[2020-12-19 21:21] LABS: CORONAVIRUS COVID-19 NAA NEGATIVE (NEGATIVE)
--- NOTE | 2020-12-19 21:22 | CRLCR ---
INDICATION: Shortness of breath. COPD. COMPARISON: 01/16/2020 and 08/08/2017 chest radiographs. FINDINGS/IMPRESSION: Question of subtle new patchy infiltrate in the right lower lobe, possibly representing mild pneumonia. No pleural effusion identified. Stable cardiac configuration. Small retrocardiac hiatal hernia. Status post median sternotomy. Spinal degenerative changes. Dictated by Paul Olmedo MD @ 12/19/2020 9:20:42 PM Dictated by: Paul Olmedo MD @ 12/19/2020 21:21:29 (Electronically Signed)
[2020-12-19] MEDS ORDERED: Sodium Chloride 0.9% 10 ML Syringe FLUSH PRN (21:36)
[2020-12-19] MEDS ORDERED: cefTRIAXone 1 GM in Sodium Chloride 0.9% 50 ML IV ONE (21:36)
== END 2020-12-19 22:20 | disposition home or self-care (01) ==
LOC: JP.ED 19:15
DX: J44.0 Chronic obstructive pulmonary disease with (acute) lower respiratory infection (principal); J18.9 Pneumonia, unspecified organism; J44.1 Chronic obstructive pulmonary disease with (acute) exacerbation; E78.00 Pure hypercholesterolemia, unspecified; I10 Essential (primary) hypertension; M19.90 Unspecified osteoarthritis, unspecified site; Z86.73 Personal history of transient ischemic attack (TIA), and cerebral infarction without residual deficits; Z20.822 Contact with and (suspected) exposure to COVID-19; Z88.4 Allergy status to anesthetic agent; Z91.048 Other nonmedicinal substance allergy status; Z88.5 Allergy status to narcotic agent; Z79.82 Long term (current) use of aspirin; Z79.899 Other long term (current) drug therapy
CPT/HCPCS: 0241U; 36415; 71046; 80053; 81001; 83605; 85025; 86140; 96365; 99285-25; J0696

== ENCOUNTER 2021-03-13 21:53 | Emergency (ER) | payer OTHER, MEDICARE ==
[2021-03-13] MEDS ORDERED: Sodium Chloride 0.9% 1,000 ML IV SCH (22:30)
[2021-03-13] MEDS ORDERED: Acetaminophen 325 MG Tab PO ONE (22:30)
[2021-03-13] MEDS ORDERED: Vancomycin 2 GM in Sodium Chloride 0.9% 500 ML IV ONE (22:36)
[2021-03-13] MEDS ORDERED: cefTRIAXone 1 GM in Sodium Chloride 0.9% 50 ML IV ONE (22:38)
--- NOTE | 2021-03-13 22:44 | EDM.PDOC ---
<Sharona Dewey - Last Filed: 03/13/21 22:40> ED HPI GENERAL MEDICAL PROBLEM - General Chief Complaint: Bite:Animal, Insect Stated Complaint: ALLERGIC REACTION BITE ON R LEG Time Seen by Provider: 03/13/21 22:15 Source of Information: Reports: Patient, Family History Limitations: Reports: No Limitations - History of Present Illness INITIAL COMMENTS - FREE TEXT/NARRATIVE: 76 year old male presenting with right leg pain and redness. The patient reports that he thinks he was bitten by a spider 2 days ago. he states he [place] he was trying to fix a tractor that broke down. He didn't feel a bite at that time, but later that night started to feel some pain behind his right knee. He reports that yesterday he just didn't feel and rested most of the today. Today he had a palm-sized area of redness to the back of his right knee with a small pustule in place when he woke up. They squeezed some pus out of the area, but the area of erythema and pain has spread significantly since then and is now streaking up his leg. He also has an associated fever. Right Lower Leg Pain Score (Numeric/FACES): 4 - Related Data Allergies Allergy/AdvReac Type Severity Reaction Status Date / Time fentanyl Allergy Anaphylactic Verified 12/19/20 19:52 Shock gluten Allergy Hives Verified 12/19/20 19:52 morphine Allergy Anaphylactic Verified 12/19/20 19:52 Shock Home Meds: Home Meds Tiotropium [Spiriva] 1 puff INH DAILY 08/09/17 [History] Budesonide/Formoterol Fumarate [Symbicort 160-4.5 Mcg Inhaler] 2 puff IH BID 09/05/18 [History] Lisinopril 20 mg PO DAILY 09/05/18 [History] Albuterol Sulfate 2.5 mg IH DAILY PRN 02/11/19 [History] Albuterol Sulfate [Albuterol Sulfate Hfa] 8.5 gm IH ASDIRECTED PRN 02/11/19 [History] Amitriptyline [Elavil] 25 mg PO BEDTIME 02/11/19 [History] Cyanocobalamin (Vitamin B-12) [B-12 Compliance] 1,000 mcg IJ ASDIRECTED 02/11/19 [History] Diclofenac Sodium 1 dose TP ASDIRECTED PRN 02/11/19 [History] atorvaSTATin Calcium [Atorvastatin Calcium] 40 mg PO BEDTIME 02/11/19 [History] Alprostadil [Edex] 40 mcg IC ASDIRECTED PRN 12/19/20 [History] Aspirin [Lo-Dose Aspirin EC] 81 mg PO DAILY 12/19/20 [History] Brimonidine [Alphagan 0.2% Ophth Soln] 1 drop TOP BID 12/19/20 [History] Cetirizine HCl [Allergy Relief] 10 mg PO DAILY 12/19/20 [History] Doxycycline [Doxycycline Hyclate] 100 mg PO Q12HR PRN 12/19/20 [History] Fluticasone Propionate [Flonase] 1 spray TOP BID 12/19/20 [History] Gabapentin [Neurontin] 300 mg PO BEDTIME 12/19/20 [History] Iron Polysaccharide Complex [Iferex 150] 150 mg PO DAILY 12/19/20 [History] Propranolol HCl [Propranolol] 60 mg PO DAILY 12/19/20 [History] SUMAtriptan [Imitrex] 50 mg PO DAILY PRN 12/19/20 [History] allopurinoL [Zyloprim] 100 mg PO DAILY 12/19/20 [History] Past Medical History HEENT History: Reports: Hard of Hearing, Impaired Vision, Retinal Detachment, Other (See Below) Other HEENT History: blood clots in both eyes Cardiovascular History: Reports: High Cholesterol, Hypertension Other Cardiovascular History: REPAIR OF A POF, AND SURGEON PERFORATED THE BACK OF THE HEART PER PT Respiratory History: Reports: Asthma, COPD Gastrointestinal History: Reports: Other (See Below) Genitourinary History: Reports: Prostate Disorder Musculoskeletal History: Reports: Arthritis, Back Pain, Chronic, Fracture Neurological History: Reports: TIA Psychiatric History: Reports: Addiction Other Psychiatric History: past alcohol Hematologic History: Reports: B12 Deficiency, Blood Transfusion(s) Oncologic (Cancer) History: Reports: Prostate - Infectious Disease History Infectious Disease History: Reports: Chicken Pox, Measles, MRSA, Pertussis (Whooping Cough) - Past Surgical History Head Surgeries/Procedures: Reports: None HEENT Surgical History: Reports: Eye Surgery, Retinal Other HEENT Surgeries/Procedures: [place] Cardiovascular Surgical History: Reports: None Respiratory Surgical History: Reports: None GI Surgical History: Reports: Appendectomy, Colonoscopy Male Surgical History: Reports: Prostatectomy Endocrine Surgical History: Reports: None Neurological Surgical History: Reports: None Other Musculoskeletal Surgeries/Procedures:: HX OF MULTIPLE SPONTANEOUS BONE B REAKS Oncologic Surgical History: Reports: None Dermatological Surgical History: Reports: None Social & Family History - Caffeine Use Caffeine Use: Reports: Coffee ED ROS GENERAL - Review of Systems Review Of Systems: Comprehensive ROS is negative, except as noted in HPI. ED EXAM, ANIMAL BITE - Physical Exam Exam: See Below Exam Limited By: No Limitations General Appearance: Alert, No Apparent Distress Head: Atraumatic, Normocephalic Neck: Supple, Full Range of Motion Respiratory/Chest: No Respiratory Distress, Lungs Clear, Normal Breath Sounds, No Accessory Muscle Use Cardiovascular: Regular Rate, Rhythm GI/Abdominal: Soft, Non-Tender Extremities: Leg Pain, Increased Warmth, Redness Neurological: Alert, Oriented, CN II-XII Intact, Normal Cognition Psychiatric: Normal Affect, Normal Mood Skin Exam: Warm/Dry, Other (Right lower extremity has a pustule in the popliteal fossa with significant surrounding induration, erythema, and warmth. There is no fluctuance. No active drainage. There is erythematous streaking proximally up the thigh. ) Lymphadenopathy: Right: Inguinal Adenopathy Departure - Departure Disposition: Home, Self-Care 01 Clinical Impression: Cellulitis Qualifiers: Site of cellulitis: extremity Site of cellulitis of extremity: lower extremity Laterality: right Qualified Code(s): L03.115 - Cellulitis of right lower limb - Discharge Information Instructions: Cellulitis, Adult, [id number] Referrals: PCP,None [Primary Care Provider] - Forms: ED Department Discharge Additional Instructions: Your return and register at the hospital for outpatient IV antibiotics of vancomycin you are to receive a total of 4 doses first 1 will be at noon today, I want you to fill the prescription for Augmentin you will take this medication twice a day for the next 10 days. At the end of your fourth dose of vancomycin we will stop the IV antibiotics and continue with oral antibiotics however at any time if the condition becomes worse you need to be reevaluated in the emergency department Sepsis Event Note (ED) - Evaluation Sepsis Screening Result: No Definite Risk <OfficerLacho - Last Filed: 03/14/21 00:19> Course - Vital Signs Last Recorded V/S: Last Vital Signs Temp 102.8 F H 03/13/21 22:27 Pulse 62 03/13/21 23:24 Resp 18 03/13/21 22:27 BP 156/80 H 03/13/21 23:24 Pulse Ox 95 03/13/21 23:24 - Orders/Labs/Meds Orders: Active Orders 24 hr Category Date Time Status CULTURE BLOOD [BC] Urgent Lab 03/13/21 22:35 Received CULTURE BLOOD [BC] Urgent Lab 03/13/21 22:40 Received Sodium Chloride 0.9% [Normal Saline] 1,000 ml Med 03/13/21 22:30 Active IV ASDIRECTED Vancomycin 2 gm Med 03/13/21 22:36 Active Sodium Chloride 0.9% [Normal Saline] 500 ml IV ONETIME Blood Culture x2 Reflex Set [OM.PC] Urgent Oth 03/13/21 22:24 Ordered Medication Orders Sodium Chloride (Normal Saline) 1,000 mls @ 1,000 mls/hr IV ASDIRECTED RIKY Last Admin: 03/13/21 23:21 Dose: 1,000 mls/hr Documented by: YURIDIA Vancomycin HCl 2 gm/ Sodium (Chloride) 500 mls @ 250 mls/hr IV ONETIME ONE Stop: 03/14/21 00:35 Last Admin: 03/14/21 00:13 Dose: 250 mls/hr Documented by: YURIDIA Labs: Laboratory Tests 03/13/21 03/13/21 03/13/21 Range/Units 22:35 22:35 22:35 WBC 7.8 (4.5-11.0) K/uL RBC 4.54 (4.30-5.90) M/uL Hgb 14.3 (12.0-15.0) g/dL Hct 42.7 (40.0-54.0) % MCV 94 (80-98) fL MCH 32 H (27-31) pg MCHC 34 (32-36) % Plt Count 175 (150-400) K/uL Neut % (Auto) 67.6 H (36-66) % Lymph % (Auto) 12.4 L (24-44) % [place] % (Auto) 10.2 H (2-6) % Eos % (Auto) 9.3 H (2-4) % Baso % (Auto) 0.5 (0-1) % Sodium 138 L (140-148) mmol/L Potassium 3.9 (3.6-5.2) mmol/L Chloride 101 (100-108) mmol/L Carbon Dioxide 24 (21-32) mmol/L Anion Gap 16.9 H (5.0-14.0) mmol/L BUN 11 (7-18) mg/dL Creatinine 1.2 (0.8-1.3) mg/dL Est Cr Clr Drug Dosing 61.84 mL/min Estimated GFR (MDRD) 59 L (>60) Glucose 128 H (74-106) mg/dL Lactic Acid 1.5 (0.4-2.0) mmol/L Calcium 8.6 (8.5-10.1) mg/dL Total Bilirubin 0.7 (0.2-1.0) mg/dL AST 48 H D (15-37) U/L ALT 38 (12-78) U/L Alkaline Phosphatase 93 (46-116) U/L C-Reactive Protein 1.54 H (0.0-0.3) mg/dL Total Protein 6.7 (6.4-8.2) g/dL Albumin 3.4 (3.4-5.0) g/dL Globulin 3.3 (2.3-3.5) g/dL Albumin/Globulin Ratio 1.0 L (1.2-2.2) Procalcitonin ng/mL 03/13/21 Range/Units 22:35 WBC (4.5-11.0) K/uL RBC (4.30-5.90) M/uL Hgb (12.0-15.0) g/dL Hct (40.0-54.0) % MCV (80-98) fL MCH (27-31) pg MCHC (32-36) % Plt Count (150-400) K/uL Neut % (Auto) (36-66) % Lymph % (Auto) (24-44) % [place] % (Auto) (2-6) % Eos % (Auto) (2-4) % Baso % (Auto) (0-1) % Sodium (140-148) mmol/L Potassium (3.6-5.2) mmol/L Chloride (100-108) mmol/L Carbon Dioxide (21-32) mmol/L Anion Gap (5.0-14.0) mmol/L BUN (7-18) mg/dL Creatinine (0.8-1.3) mg/dL Est Cr Clr Drug Dosing mL/min Estimated GFR (MDRD) (>60) Glucose (74-106) mg/dL Lactic Acid (0.4-2.0) mmol/L Calcium (8.5-10.1) mg/dL Total Bilirubin (0.2-1.0) mg/dL AST (15-37) U/L ALT (12-78) U/L Alkaline Phosphatase (46-116) U/L C-Reactive Protein (0.0-0.3) mg/dL Total Protein (6.4-8.2) g/dL Albumin (3.4-5.0) g/dL Globulin (2.3-3.5) g/dL Albumin/Globulin Ratio (1.2-2.2) Procalcitonin 0.71 ng/mL Meds: Medications Generic Name Dose Route Start Last Admin Trade Name Freq PRN Reason Stop Dose Admin Sodium Chloride 1,000 mls @ 1,000 mls/hr 03/13/21 22:30 03/13/21 23:21 Normal Saline IV 1,000 mls/hr ASDIRECTED RIKY Administration Vancomycin HCl 2 gm/ Sodium 500 mls @ 250 mls/hr 03/13/21 22:36 03/14/21 00:13 Chloride IV 03/14/21 00:35 250 mls/hr ONETIME ONE Administration Discontinued Medications Generic Name Dose Route Start Last Admin Trade Name Freq PRN Reason Stop Dose Admin Acetaminophen 650 mg 03/13/21 22:30 03/13/21 23:21 Acetaminophen 325 Mg Tab PO 03/13/21 22:31 650 mg NOW ONE Administration Ceftriaxone Sodium 1 gm/ 50 mls @ 100 mls/hr 03/13/21 22:38 03/13/21 23:21 Sodium Chloride IV 03/13/21 23:07 100 mls/hr ONETIME ONE Administration Departure - Departure Time of Disposition: 00:17 Condition: Fair Sepsis Event Note (ED) - Focused Exam Vital Signs: Vital Signs Temp Pulse Resp BP Pulse Ox 03/13/21 23:24 62 156/80 H 95 03/13/21 22:27 102.8 F H 67 18 169/84 H 95 03/13/21 22:12 102.8 F H 67 18 169/84 H 95 - Assessment/Plan Plan: Took over care at 2300 Assessment Acuity = acute Site and laterality = cellulitis right leg Etiology = probably bacterial cause Manifestations = none Location of injury = Home Lab values = CBC unremarkable CMP unremarkable lactic acid normal 1.5 CRP slightly elevated 1.5 procalcitonin normal at 0.71 consistent with known sepsis Plan Discussed hospital admission versus outpatient treatment they elected to try outpatient treatment the plan is to leave his IV in place he will receive vancomycin 1 g every 12 hours for a total of 4 doses, in combination with Augmentin 875 p.o. twice daily which he starts tomorrow he will continue with the Augmentin for total of 10 days if after the 4 doses of vancomycin he is not improving or his symptoms become worse he needs to be reevaluated of which they are in agreement This note was dictated using [employer] voice recognition software please call with any questions on syntax or grammar.
== END 2021-03-14 02:49 | disposition home or self-care (01) ==
LOC: JP.ED 21:53
DX: L03.115 Cellulitis of right lower limb (principal); E78.00 Pure hypercholesterolemia, unspecified; I10 Essential (primary) hypertension; J44.9 Chronic obstructive pulmonary disease, unspecified; M19.90 Unspecified osteoarthritis, unspecified site; Z88.8 Allergy status to other drugs, medicaments and biological substances; Z88.5 Allergy status to narcotic agent; Z91.018 Allergy to other foods; Z79.82 Long term (current) use of aspirin; Z79.899 Other long term (current) drug therapy
CPT/HCPCS: 36415; 80053; 83605; 84145; 85025; 86140; 87040; 96365; 96366; 96367; 99284; A9270; J0696; J3370; J7030; J7040

== ENCOUNTER 2022-01-04 16:18 | Emergency (ER) | payer OTHER ==
[2022-01-04] MEDS ORDERED: Lidocaine 1% 5 ML VIAL INJECT ONE (16:45)
[2022-01-04] MEDS ORDERED: Bacitracin Oint 1 GM U/D Packet TOP ONE (16:45)
[2022-01-04] MEDS ORDERED: Lidocaine 1% with EPINEPHrine 1:100,000 50 ML MDV INFILT ONE (17:05)
== END 2022-01-04 17:21 | disposition home or self-care (01) ==
LOC: JP.ED 16:18
DX: S01.112A Laceration without foreign body of left eyelid and periocular area, initial encounter (principal); J44.9 Chronic obstructive pulmonary disease, unspecified; E78.00 Pure hypercholesterolemia, unspecified; I10 Essential (primary) hypertension; Z86.73 Personal history of transient ischemic attack (TIA), and cerebral infarction without residual deficits; Z88.5 Allergy status to narcotic agent; Z91.018 Allergy to other foods; Z88.8 Allergy status to other drugs, medicaments and biological substances; Z79.82 Long term (current) use of aspirin; Z79.899 Other long term (current) drug therapy; W22.09XA Striking against other stationary object, initial encounter
CPT/HCPCS: 12001; 12011; 99281; 99283-25

== ENCOUNTER 2023-07-09 17:45 | Emergency (ER) | payer OTHER, MEDICARE ==
[2023-07-09] MEDS ORDERED: Aspirin 81 MG Tab.Chew PO ONE (17:57)
[2023-07-09 18:08] LABS: BASOPHILS ABSOLUTE AUTO 0.07 K/uL (0.00-0.10); EOSINOPHILS ABSOLUTE AUTO 0.55 K/uL (0.00-0.40); EOSINOPHILS PERCENT AUTO 7.6 % (0.0-5.4); HEMOGLOBIN 14.7 g/dL (12.9-16.9); IMMATURE GRAN ABSOLUTE AUTO 0.03 K/uL (0.00-0.23); IMMATURE GRAN PERCENT AUTO 0.4 % (0.0-0.7); LYMPHOCYTES ABSOLUTE AUTO 1.82 K/uL (0.8-3.3); LYMPHOCYTES PERCENT AUTO 25.2 % (11.4-47.7); MEAN CORPUSCULAR VOLUME 94.2 fL (81.4-99.0); MONOCYTES ABSOLUTE AUTO 0.81 K/uL (0.20-0.90); MONOCYTES PERCENT AUTO 11.2 % (3.3-12.6); NEUTROPHILS ABSOLUTE AUTO 3.95 K/uL (1.0-7.6); NEUTROPHILS PERCENT AUTO 54.6 % (40.0-78.1); PLATELET COUNT,PLT 176 K/uL (130-375); RED BLOOD CELL COUNT 4.46 M/uL (4.14-5.76); WHITE BLOOD CELL COUNT,WBC 7.2 K/uL (3.2-11.0)
[2023-07-09 18:31] LABS: CALCIUM 8.2 mg/dL (8.5-10.1); CREATININE 1.2 mg/dL (0.8-1.3); EST CRCL DRUG DOSING (CG) 56.58 mL/min; TROPONIN I HIGH SENSITIVITY 12.2 pg/mL (<=60.3)
== END 2023-07-09 18:44 | disposition home or self-care (01) ==
LOC: JP.ED 17:45
DX: R07.89 Other chest pain (principal); I10 Essential (primary) hypertension; E78.00 Pure hypercholesterolemia, unspecified; J44.9 Chronic obstructive pulmonary disease, unspecified; Z79.899 Other long term (current) drug therapy; Z88.5 Allergy status to narcotic agent; Z91.018 Allergy to other foods
CPT/HCPCS: 36415; 71046; 71046-26; 80048; 84484; 85025; 93005; 93010; 99284; 99285; A9270-GY

== ENCOUNTER 2024-08-04 11:40 | Emergency (ER) | payer OTHER, MEDICARE ==
[2024-08-04 12:15] LABS: BASOPHILS ABSOLUTE AUTO 0.05 K/uL (0.00-0.10); BASOPHILS PERCENT AUTO 0.6 % (0.1-1.3); EOSINOPHILS ABSOLUTE AUTO 0.48 K/uL (0.00-0.40); EOSINOPHILS PERCENT AUTO 5.6 % (0.0-5.4); HEMATOCRIT 43.1 % (38.4-49.7); HEMOGLOBIN 15.1 g/dL (12.9-16.9); IMMATURE GRAN ABSOLUTE AUTO 0.05 K/uL (0.00-0.23); IMMATURE GRAN PERCENT AUTO 0.6 % (0.0-0.7); LYMPHOCYTES ABSOLUTE AUTO 1.65 K/uL (0.8-3.3); LYMPHOCYTES PERCENT AUTO 19.3 % (11.4-47.7); MEAN CORPUSCULAR HEMOGLOBIN 32.5 pg (31.6-35.5); MEAN CORPUSCULAR VOLUME 92.9 fL (81.4-99.0); MONOCYTES ABSOLUTE AUTO 0.97 K/uL (0.20-0.90); MONOCYTES PERCENT AUTO 11.4 % (3.3-12.6); NEUTROPHILS ABSOLUTE AUTO 5.34 K/uL (1.0-7.6); NEUTROPHILS PERCENT AUTO 62.5 % (40.0-78.1); PLATELET COUNT,PLT 187 K/uL (130-375); RED BLOOD CELL COUNT 4.64 M/uL (4.14-5.76); WHITE BLOOD CELL COUNT,WBC 8.5 K/uL (3.2-11.0)
[2024-08-04] MEDS: Sodium Chloride 0.9% 1,000 ML IV ONE (12:18)
[2024-08-04] MEDS: Sodium Chloride 0.9% 10 ML Syringe FLUSH PRN (12:19)
[2024-08-04 12:41] LABS: ANION GAP 10.3 mmol/L (5.0-14.0); C-REACTIVE PROTEIN 2.29 mg/dL (<0.50); CALCIUM 8.9 mg/dL (8.5-10.1); CREATININE 1.2 mg/dL (0.8-1.3); EST CRCL DRUG DOSING (CG) 55.69 mL/min; POTASSIUM,K 3.7 mmol/L (3.6-5.2); TROPONIN I HIGH SENSITIVITY 9.8 pg/mL (<=60.3)
[2024-08-04 12:56] LABS: LACTIC ACID 1.1 mmol/L (0.4-2.0)
[2024-08-04] MEDS: methylPREDNISolone Sodium Succinate 125 MG/2 ML SDV IVPUSH ONE (13:13)
[2024-08-04] MEDS: Iopamidol 755 Mg/ML 100 ML Bottle IV SCH (14:27)
[2024-08-04] MEDS: Sodium Chloride 0.9% 10 ML Syringe FLUSH ONE (14:27)
[2024-08-04] MEDS: Sodium Chloride 0.9% 80 ML IV SCH (14:28)
== END 2024-08-04 15:52 | disposition home or self-care (01) ==
LOC: JP.ED 11:40
DX: J44.1 Chronic obstructive pulmonary disease with (acute) exacerbation (principal); I10 Essential (primary) hypertension; E78.00 Pure hypercholesterolemia, unspecified; Z90.49 Acquired absence of other specified parts of digestive tract; Z90.79 Acquired absence of other genital organ(s); Z86.73 Personal history of transient ischemic attack (TIA), and cerebral infarction without residual deficits; Z88.5 Allergy status to narcotic agent; Z91.018 Allergy to other foods; Z79.51 Long term (current) use of inhaled steroids; Z79.899 Other long term (current) drug therapy
CPT/HCPCS: 36415; 71046; 71275; 80048; 83605; 84145; 84484; 85025; 85379; 86140; 87040; 93005; 96361; 96374; 99285; J2919; J3490; J7030; Q9967; 93010; 99284

== ENCOUNTER 2025-06-28 10:54 | Emergency (ER) | payer OTHER ==
[2025-06-28 11:25] LABS: PLATELET COUNT,PLT 211 K/uL (130-375); RED BLOOD CELL COUNT 4.94 M/uL (4.14-5.76); WHITE BLOOD CELL COUNT,WBC 6.8 K/uL (3.2-11.0)
[2025-06-28 11:44] LABS: BASOPHILS ABSOLUTE AUTO 0.04 K/uL (0.00-0.10); BASOPHILS PERCENT AUTO 0.6 % (0.1-1.3); EOSINOPHILS ABSOLUTE AUTO 0.47 K/uL (0.00-0.40); EOSINOPHILS PERCENT AUTO 6.7 % (0.0-5.4); IMMATURE GRAN ABSOLUTE AUTO 0.04 K/uL (0.00-0.23); IMMATURE GRAN PERCENT AUTO 0.6 % (0.0-0.7); LYMPHOCYTES ABSOLUTE AUTO 2.32 K/uL (0.8-3.3); LYMPHOCYTES PERCENT AUTO 33.1 % (11.4-47.7); MONOCYTES ABSOLUTE AUTO 0.82 K/uL (0.20-0.90); MONOCYTES PERCENT AUTO 11.7 % (3.3-12.6); NEUTROPHILS ABSOLUTE AUTO 3.31 K/uL (1.0-7.6); NEUTROPHILS PERCENT AUTO 47.3 % (40.0-78.1)
[2025-06-28 11:48] LABS: BLOOD UREA NITROGEN,BUN 18.0 mg/dL (7-18); CARBON DIOXIDE,CO2 25.0 mmol/L (21-32); CHLORIDE,CL 104.0 mmol/L (100-108); CREATININE 1.5 mg/dL (0.8-1.3); EST CRCL DRUG DOSING (CG) 43.83 mL/min; ESTIMATED GFR 47.0 mL/min (>60); GLUCOSE RANDOM 109.0 mg/dL (74-106); POTASSIUM,K 4.1 mmol/L (3.6-5.2); SODIUM,NA 140.0 mmol/L (140-148); TROPONIN I HIGH SENSITIVITY 14.5 pg/mL (<=60.3)
[2025-06-28] MEDS: Sodium Chloride 0.9% 10 ML Syringe FLUSH PRN (12:24)
[2025-06-28 13:05] LABS: CORONAVIRUS COVID-19 NAA NEGATIVE (NEGATIVE); INFLUENZA A NAA NEGATIVE (NEGATIVE); INFLUENZA B NAA NEGATIVE (NEGATIVE); RESPIRATORY SYNCYTIAL VIR NAA NEGATIVE (NEGATIVE)
[2025-06-28 13:18] LABS: APPEARANCE,URINE CLEAR (CLEAR); GLUCOSE,URINE NEGATIVE (NEGATIVE); OCCULT BLOOD,URINE TRACE-INTACT (NEGATIVE)
[2025-06-28 13:26] LABS: SQUAMOUS EPITHELIAL CELLS,UR NOT SEEN /HPF
[2025-06-28] MEDS: Sodium Chloride 0.9% 10 ML Syringe FLUSH ONE (13:59)
[2025-06-28] MEDS: Iopamidol 755 Mg/ML 100 ML Bottle IV ONE (13:59)
== END 2025-06-28 15:40 | disposition home or self-care (01) ==
LOC: JP.ED 10:54
DX: R55 Syncope and collapse (principal); R53.83 Other fatigue; I10 Essential (primary) hypertension; E78.00 Pure hypercholesterolemia, unspecified; Z86.73 Personal history of transient ischemic attack (TIA), and cerebral infarction without residual deficits; Z86.16 Personal history of COVID-19; Z88.6 Allergy status to analgesic agent; Z91.018 Allergy to other foods; Z79.899 Other long term (current) drug therapy
CPT/HCPCS: 36415; 71046; 71275; 80048; 81001; 83735; 84484; 85025; 85379; 87637; 93005; 96360; 99284; J7030; Q9967; 93010